=== PATIENT | male | born 1995 | race Caucasian/White ===

== ENCOUNTER 2022-02-25 03:57 | Emergency (ER) | payer BC ==
[~2022-02-25] VITALS: Ht 172.7 cm; Wt 113.4 kg
[2022-02-25 04:00] VITALS: BP_SYST 158
[2022-02-25 04:33] VITALS: BP_SYST 158
== END 2022-02-25 04:33 | disposition home or self-care (01) ==
LOC: SED 03:57
DX: K02.9 Dental caries, unspecified (principal)
CPT/HCPCS: 99283

== ENCOUNTER 2022-10-14 07:19 | Emergency (ER) | payer BC ==
[~2022-10-14] VITALS: Ht 172.7 cm; Wt 113.4 kg
[2022-10-14 07:33] VITALS: BP_SYST 133
[2022-10-14] MEDS ORDERED: BUPIVACAINE /PF 0.25% 30 ML VIAL INJ ONE (08:30)
[2022-10-14] MEDS ORDERED: NAPR-690 PO (08:48)
[2022-10-14 09:11] VITALS: BP_SYST 133
== END 2022-10-14 09:11 | disposition home or self-care (01) ==
LOC: SED 07:19
DX: K08.89 Other specified disorders of teeth and supporting structures (principal); Z79.899 Other long term (current) drug therapy
CPT/HCPCS: 99283; 96372; J3490

== ENCOUNTER 2023-10-29 22:27 | Emergency (ER) | payer BC, OTHER ==
[~2023-10-29] VITALS: Ht 172.7 cm; Wt 107.0 kg
[~2023-10-29 22:27] MED LIST: NAPR-690 PO
[2023-10-29 22:30] VITALS: BP_SYST 153; PULSE 88; RESP 17; TEMP 98; O2SAT 97
[2023-10-30] MEDS ORDERED: AUG875 PO (00:08)
[2023-10-30] MEDS ORDERED: KETOROLAC TROMETHAMINE 15 MG VIAL IM ONE (00:15)
[2023-10-30 00:44] VITALS: BP_SYST 132; PULSE 76; RESP 16; TEMP 98; O2SAT 98
== END 2023-10-30 00:44 | disposition home or self-care (01) ==
LOC: SED 22:27
DX: K04.7 Periapical abscess without sinus (principal); K02.9 Dental caries, unspecified; K08.89 Other specified disorders of teeth and supporting structures; Z79.899 Other long term (current) drug therapy
CPT/HCPCS: 99283; 96372; J1885

== ENCOUNTER 2023-11-14 03:32 | Emergency (ER) | payer OTHER ==
[~2023-11-14] VITALS: Ht 175.3 cm; Wt 104.3 kg
[~2023-11-14 03:32] MED LIST changes: +AUG875 PO
[2023-11-14 03:35] VITALS: BP_SYST 158; PULSE 58; RESP 20; TEMP 97.7; O2SAT 99
[2023-11-14] MEDS ORDERED: AUG875 PO (03:53)
[2023-11-14] MEDS: KETOROLAC TROMETHAMINE 60 MG/2 ML VIAL IM ONE (04:00)
[2023-11-14 04:01] VITALS: BP_SYST 158; PULSE 58; RESP 20; TEMP 97.7; O2SAT 99
== END 2023-11-14 04:01 | disposition home or self-care (01) ==
LOC: SED 03:32
DX: K02.9 Dental caries, unspecified (principal); K08.89 Other specified disorders of teeth and supporting structures; Z79.899 Other long term (current) drug therapy
CPT/HCPCS: 99283; 96372; J1885

== ENCOUNTER 2024-02-03 23:49 | Emergency (ER) | payer OTHER ==
[~2024-02-03] VITALS: Ht 175.3 cm; Wt 104.3 kg
[2024-02-04 00:21] VITALS: PULSE 77; RESP 16; TEMP 97.8; O2SAT 97
[2024-02-04] MEDS ORDERED: AUG875 PO (00:44)
[2024-02-04 00:54] VITALS: PULSE 77; RESP 16; TEMP 97.8; O2SAT 97
== END 2024-02-04 00:51 | disposition home or self-care (01) ==
LOC: SED 23:49
DX: J02.9 Acute pharyngitis, unspecified (principal); R05.9 Cough, unspecified; R50.9 Fever, unspecified; Z79.899 Other long term (current) drug therapy
CPT/HCPCS: 99283